=== PATIENT | female | born 1955 | race Caucasian/White ===

== ENCOUNTER 2019-10-05 20:14 | Emergency (ER) | payer BC ==
[2019-10-05] MEDS ORDERED: LIDOCAINE 1% 10 ML VIAL INJ ONE ×2 (20:21→20:22)
[2019-10-05] MEDS ORDERED: CHLORHEXIDINE GLUCONATE 4 % 15 ML UD TOP ONE (20:22)
[2019-10-05 20:31] VITALS: TEMP 97.2; O2SAT 97
[2019-10-05] MEDS ORDERED: TETANUS,DIPHTHERIA,PERTUSSIS 1 EA SYG IM ONE (20:46)
--- NOTE | 2019-10-05 20:49 | ED.PDOC ---
History of Present Illness - General Chief Complaint: Laceration Stated Complaint: laceration to finger Time Seen by Provider: 10/05/19 20:19 - History of Present Illness Initial Comments: 64 F presents to ED c/o left 2nd finger laceration that occurred [employer] while sewing with her machine. Last tetanus shot is unknown. She denies any associated numbness, tingling, weakness. Pt is otherwise healthy with no other signs, symptoms, or complaints. Home Medications: Ambulatory Orders Hctz 25 mg/Triamterene 37.5 mg [Dyazide-25] 1 ea PO 10/05/19 Review of Systems - Review of Systems Constitutional: Denies: chills, fever Musculoskeletal: Denies: joint pain, joint swelling, muscle pain Skin: States: other - left second finger laceration. Denies: rash Neurological: States: other - no tingling. Denies: numbness, weakness Past Medical History (General) - Patient Medical History Hx Hypertension: Yes Surgical History: Hysterectomy - Vaccination History Hx Tetanus, Diphtheria Vaccination: No Hx Influenza Vaccination: No - Social History Hx Tobacco Use: No Hx Alcohol Use: No Family Medical History - Family History Mother Family History: Unknown Physical Exam - Physical Exam General Appearance: Alert, Comfortable, No apparent distress Respiratory: lungs clear, normal breath sounds, no respiratory distress, no accessory muscle use Cardiovascular/Chest: normal peripheral pulses, regular rate, rhythm, no murmur Peripheral Pulses: radial,left: 2+ Extremity: other - 2nd left distal phalange with linear laceration involving dorsal lateral and medial portions, superficial, ~2.5cm in length, mild controlled bleeding, clean without foreign bodies, linear flap laceration, neurovascularly intact distally with <2 second capillary refill, no tendon/muscle involvement. Neurologic: no motor/sensory deficits - localized to LUE/hand/fingers, alert, normal mood/affect, oriented x 3 Skin Exam: normal color, warm/dry, other - laceration as described above Procedures - Laceration/Wound Repair Left Lower Posterior Distal Finger Wound's Depth, Shape: superficial, flap Wound Explored: no foreign body removed Betadine Prep?: Yes - Hibiclens used Anesthesia: 1% Lidocaine Volume Anesthetic (cc's): 6 Wound Debrided: none Wound Repaired With: sutures Suture Size/Type: 5:0, prolene Number of Sutures: 6 - simple interrupted Sterile Dressing Applied?: No Splint Applied?: No Sling Applied?: No Progress: Pt tolerated procedure well without complication. Return to ED in 10 days on 10/15/19 for suture removal. Departure - Departure Clinical Impression: Laceration Time of Disposition: 20:47 Disposition: Discharge to Home or Self Care Condition: Excellent Departure Forms: ED Discharge - Pt. Copy, Patient Portal Self Enrollment Instructions: DI for Laceration Repair, How to Care for a Laceration After Repair Referrals: MARJORIE TATUM MD [Primary Care Provider] - 10/15/19 (Return to ED in 10 days for suture removal.) [facility] Emergency Department [Other] - 1-2 Weeks (Return to emergency department in 10 days on 10/15/19 for suture removal and wound re- evaluation.) Home Medications: Ambulatory Orders Hctz 25 mg/Triamterene 37.5 mg [Dyazide-25] 1 ea PO 10/05/19
[2019-10-05] MEDS ORDERED: NEOMYCIN-BACITRACIN-POLYMYXIN 0.9 GM UD TOP ONE (20:52)
[2019-10-05 20:56] VITALS: BP 168/100
== END 2019-10-05 20:56 | disposition home or self-care (01) ==
LOC: ER 20:14
DX: S61.211A Laceration without foreign body of left index finger without damage to nail, initial encounter (principal); I10 Essential (primary) hypertension; W31.89XA Contact with other specified machinery, initial encounter; Y93.D2 Activity, sewing; Z79.899 Other long term (current) drug therapy; Y92.9 Unspecified place or not applicable

== ENCOUNTER → 2020-11-27 | Outpatient (CLI) | payer BC | LOC: GMAE 11:22 | PROVIDERS: ATTEND Family Medicine | DX: I10 Essential (primary) hypertension (principal) ==